=== PATIENT | male | born 1965 | race Caucasian/White ===

== ENCOUNTER 2020-08-24 06:10 | Inpatient (IN) ==
[2020-08-24] MEDS ORDERED: Ringers Solution, Lactated 1,000 ML IVC SCH ×2 (06:45→07:00)
[2020-08-24] MEDS ORDERED: *HR* OxyCODONE Immed Rel 5 MG TABLET PO PRN (06:48)
[2020-08-24] MEDS ORDERED: Ondansetron 4 MG/2 ML VIAL IVP PRN ×2 (06:48→11:09)
[2020-08-24] MEDS ORDERED: *HR* FentaNYL (PF) 100 MCG/2 ML VIAL ONE (06:51)
[2020-08-24] MEDS ORDERED: *HR* Propofol 200 MG/20 ML VIAL IVP ONE (06:52)
[2020-08-24] MEDS ORDERED: Lidocaine -MPF 2% 2 ML VIAL ONE (06:52)
[2020-08-24] MEDS ORDERED: *HR* Succinylcholine 200 MG/10 ML VIAL IVP ONE (06:52)
[2020-08-24] MEDS ORDERED: *HR* Rocuronium Bromide 50 MG/5 ML VIAL ONE (06:52)
[2020-08-24] MEDS ORDERED: *HR* Midazolam HCl 2 MG/2 ML VIAL ONE (06:52)
[2020-08-24] MEDS ORDERED: Dexamethasone 4 MG/ML VIAL ONE (06:52)
[2020-08-24] MEDS ORDERED: Lidocaine HCL 4 ML Topical Solution (Laryng-O-Jet Kit Sterile Pak) TP ONE (06:57)
[2020-08-24] MEDS ORDERED: levoFLOXacin 500 MG/100 ML 500 MG/100 ML BAG IVPB ONE (07:10)
[2020-08-24] MEDS ORDERED: Clindamycin 900 MG/50 ML 900 MG/50 ML IV.SOLN IVPB ONE (07:22)
[2020-08-24] MEDS ORDERED: Bupivacaine-MPF 0.25% 10 ML VIAL ONE (07:29)
[2020-08-24] MEDS ORDERED: *HR* HYDROMORPHONE 2 MG/ML VIAL ONE (08:23)
[2020-08-24] MEDS ORDERED: Sugammadex Sodium 200 MG/2 ML VIAL IV ONE (08:45)
[2020-08-24] MEDS: *HR* HYDROmorphone PF 0.5 MG/0.5 ML SYRINGE IVP PRN ×2 (09:24→09:31)
[2020-08-24] MEDS: *HR* Metoprolol 5 MG/5 ML VIAL IVP PRN ×2 (09:36→10:06)
[2020-08-24] MEDS ORDERED: *HR* Metoprolol 5 MG/5 ML VIAL IVP PRN (09:37)
[2020-08-24] MEDS ORDERED: *HR* Metoprolol 5 MG/5 ML VIAL IVP ONE (09:40)
[2020-08-24] MEDS ORDERED: 0.9 % Sodium Chloride 1,000 ML IVC SCH (11:09)
[2020-08-24] MEDS ORDERED: Naloxone 0.4 MG/ML INJ IVP PRN (11:09)
[2020-08-24] MEDS ORDERED: NON-FORMULARY MEDICATION 1 EACH EACH (Amlodipine Besylate 2.5 MG) PO SCH (11:09)
[2020-08-24] MEDS ORDERED: 0.9 % Sodium Chloride 1,000 ML ONE (11:16)
[2020-08-24] MEDS ORDERED: carvediloL 6.25 MG TABLET PO ONE (11:38)
[2020-08-24] MEDS: Valsartan 80 MG TABLET PO SCH (11:40)
[2020-08-24] MEDS: aMILoride 5 MG TABLET PO SCH ×2 (11:40→20:16)
[2020-08-24] MEDS: amLODIPine 5 MG TABLET PO SCH (11:41)
[2020-08-24] MEDS ORDERED: carvediloL 6.25 MG TABLET PO SCH (11:45)
[2020-08-24] MEDS: *HR* HYDROcodone/Acet 5/325 mg TABLET PO PRN ×2 (12:21→18:24)
[2020-08-24] MEDS: carvediloL 6.25 MG TABLET PO SCH (16:08)
[2020-08-24] MEDS: 0.9 % Sodium Chloride 1,000 ML IVC SCH (16:08)
[2020-08-24] MEDS: *HR* OxyCODONE Immed Rel 5 MG TABLET PO PRN ×2 (16:13→22:35)
[2020-08-25] MEDS: 0.9 % Sodium Chloride 1,000 ML IVC SCH (00:12)
[2020-08-25] MEDS: *HR* HYDROcodone/Acet 5/325 mg TABLET PO PRN (02:06)
[2020-08-25 04:22] LABS: Basophils # 0.1 K/mcL (0.0-0.2); Basophils % 0.5 %; Eosinophils # 0.1 K/mcL (0.0-0.6); Eosinophils % 0.8 %; Hematocrit 40.9 % (37.5-50.1); Hemoglobin 13.4 g/dL (12.9-16.9); Immature Granulocytes % 0.3 % (0-4); Lymphocytes # 1.5 K/mcL (0.6-4.6); Lymphocytes % 13.1 %; Mean Corpuscular HGB Conc 32.8 g/dL (31.6-35.5); Mean Corpuscular Hemoglobin 29.2 pg (28.0-33.3); Mean Corpuscular Volume 89.1 fL (83.0-100.0); Mean Platelet Volume 10.2 fL (9.4-12.4); Monocytes # 1.2 K/mcL (0.0-1.3); Monocytes % 10.6 %; Neutrophils # 8.3 K/mcL (1.6-8.9); Platelet Count 209 K/mcL (140-400); Red Blood Count 4.59 M/mcL (4.19-5.50); Red Cell Distribution Width 13.3 % (11.5-14.5); Segmented Neutrophils % 74.7 %; White Blood Count 11.1 K/mcL (4.3-11.1)
[2020-08-25 04:44] LABS: Calcium 9.1 mg/dL (8.6-10.3); Potassium 4.5 mEq/L (3.5-5.1)
[2020-08-25] MEDS: carvediloL 6.25 MG TABLET PO SCH (07:37)
[2020-08-25] MEDS: amLODIPine 5 MG TABLET PO SCH (07:37)
[2020-08-25] MEDS: aMILoride 5 MG TABLET PO SCH (07:37)
[2020-08-25] MEDS: Valsartan 80 MG TABLET PO SCH (07:37)
[2020-08-25] MEDS: *HR* OxyCODONE Immed Rel 5 MG TABLET PO PRN (07:43)
[2020-08-25 07:55] VITALS: BP 189/51
== END 2020-08-25 10:08 | disposition home or self-care (01) | DRG 657 ==
LOC: SAMDAY 06:10 → 3ANU 10:44
PROVIDERS: ADMIT Urology; ATTEND Urology